=== PATIENT | female | born 1980 | race Caucasian/White ===

== ENCOUNTER 2019-07-10 09:51 | Outpatient (CLI) | payer OTHER, SELFPAY ==
--- NOTE | 2019-08-02 06:40 | ZIOP_ITS ---
ZIO PATCH DATE OF DICTATION August 01, [address] 12 days, 20 hours, July 10-2018 Baseline rhythm sinus. Rare single PAC. Single burst SVT, 5-beat duration at 176 beats per minute. Rare single PVC. Rare couplet. Rare triplet. No VT. No bradycardia or block. 3 symptomatic episodes. Irregular heart rate, chest pain, pressure, fluttering, racing noted during s inus rhythm 61-98 beats per minute. 4 triggered events all occurring during sinus rhythm plus/minus P VCs. Average heart rate sinus 75 beats per minute, range 39-169 beats per minute. Hero Zimmer M.D. OLIVIA/asmita T - 08/02/2019
== END 2019-07-10 10:11 ==
PROVIDERS: PCP Nurse Practitioner Family; Visit Provider Nurse Practitioner Family
DX: R00.2 Palpitations (principal); I47.1 Supraventricular tachycardia; I49.3 Ventricular premature depolarization
CPT/HCPCS: 0296T

== ENCOUNTER 2019-08-24 09:20 | Outpatient (CLI) | payer OTHER, SELFPAY ==
[2019-08-24 11:28] LABS: HCT 41.9 % (36.0-46.0); HGB 14.1 g/dL (12.0-15.5); Mean Corp. HGB Concentration 33.7 g/dL (32.0-36.0); Mean Corpuscular Hemoglobin 29.9 pg (27.0-33.0); Mean Corpuscular Volume 88.8 fL (80-95); Mean Platelet Volume 9.1 fL (8.0-11.0); Platelet Count 306 x1000/uL (130-400); RBC 4.72 m/cumm (4.00-5.20); RBC Distribution Width 12.2 % (11.7-14.6); White Blood Cell Count 6.31 k/cumm (4.4-10.8)
[2019-08-24 13:25] LABS: BUN 17 mg/dL (7-18); CREATININE 0.76 mg/dL (0.55-1.02); Calcium 9.3 mg/dL (8.5-10.1); Calculated LDL 122 mg/dL; Chloride 102 mmol/L (98-107); Cholesterol 181 mg/dL (50-200); Glucose 90 mg/dL (70-100); HDL Cholesterol 50 mg/dL (40-60); Magnesium 1.8 mg/dL (1.8-2.4); Potassium 4.2 mmol/L (3.5-5.1); Sodium 138 mmol/L (136-145); Triglyceride 49 mg/dL (30-150)
[2019-08-24 14:26] LABS: FREE T4 0.98 ng/dL (0.76-1.46)
== END 2019-08-24 09:40 ==
PROVIDERS: PCP Nurse Practitioner Family; Visit Provider Nurse Practitioner Family
DX: Z00.00 Encounter for general adult medical examination without abnormal findings (principal); R00.2 Palpitations
CPT/HCPCS: 36415; 80048; 80061; 85027; 83735; 84439; 84443

== ENCOUNTER 2020-08-28 14:30 | Outpatient (REF) | payer OTHER, SELFPAY ==
--- NOTE | 2020-08-28 14:30 | PAPFT_PTH ---
PATIENT: Michelle Su LOC: [facility] U#:[id number] AGE/SX: 40/F ROOM: RE08/28/[address]: KATHERINE Canela : 1980 BED: DIS: 08/28/2020 SPEC #: [id number] RECD: 08/29/20 12:52 STATUS: WENDY REKvng #: [id number] ZEESHAN: 08/28/20 14:[address]: Abbey Jenkins DEPT: [facility] Cytology RECD BY: Paris Mckeon Tissues: 1 - CX/ENDOCX FOR PAP SMEARS Procedures: PAP THIN PREP/UVM Screening HPV DNA PROBE Comments: [id number]
== END 2020-08-28 14:50 ==
LOC: LBN 14:30
PROVIDERS: PCP Nurse Practitioner Family; Visit Provider Nurse Practitioner Family
DX: R87.616 Satisfactory cervical smear but lacking transformation zone (principal); Z11.51 Encounter for screening for human papillomavirus (HPV)
CPT/HCPCS: 88142; 87624

== ENCOUNTER 2022-04-26 06:56 | Emergency (ER) | payer BC, SELFPAY ==
[2022-04-26 07:01] VITALS: BP 128/83; PULSE 103; RESP 18; TEMP 36.6; O2SAT 98
--- NOTE | 2022-04-26 08:36 | ED.GENADUL_ITS ---
Discharge Plan Disposition Patient Disposition: HOME Condition: Stable Discharge Details Clinical Impression: Low back pain Primary Care Provider: Abbey Jenkins ED Provider: Marissa Oneill Home Meds and New Rx's Prescriptions: New prednisone 20 mg tablet 40 mg PO DAILY Qty: 8 0RF lidocaine [Lidoderm] 5 % adhesive patch,medicated 1 patch topical DAILY Qty: 15 0RF Rx Instructions: leave on most painful area for up to 12 hrs, use only one patch per 24 hour period cyclobenzaprine 10 mg tablet 10 mg PO TID PRNQty: 10 0RF No Action loratadine [Claritin] 10 mg tablet 10 mg PO DAILY Mirena 20 mcg/24 hours (5 yrs) 52 mg intrauterine device 1 device intrauterine ONCE Rx Instructions: as a single dose Discharge Instructions Instructions: Prednisone (By mouth), Cyclobenzaprine (By mouth), Acute Low Back Pain (ED), Lower Back Exercises (ED) Additional Instructions: Please return immediately to the emergency department if you develop any new or worsening symptoms, if your condition does not improve as expected, or if you become otherwise concerned. It is extremely important that you call soon as possible to make an appointment to be seen in follow-up for this visit by your primary care doctor. Stand Alone Forms: Physical Therapy Referral Referrals: Abbey Jenkins, MADYSON [Primary Care Provider] - Discharge Data Discharge Date/Time-TO BE ENTERED AT DEPARTURE: 04/26/22 09:00 Medical Decision Making Michelle Su is a 41-year-old woman without reported history of medical problems presenting to emergency department with back pain. Patient reports that on the evening of 04/23/2022 patient was sitting on the floor of her porch for an extended period, and when she went to stand up noticed pain across her lower back. Patient reports that pain has been ongoing since that time, worse in the left lower back, occasionally radiating down the lateral aspect of her left thigh. Leg pain is not currently occurring. Patient reports that she took Aleve yesterday, which dulled the pain substantially and allowed her to go about her activities essentially as usual. Patient reports that most of her pain occurs with changing positions, i.e. moving from laying down to sitting or from sitting to standing. Patient reports that she is able to walk with minimal discomfort. Patient reports that she has had similar symptoms in the past years ago. She reports that she has chronic neck pain that is unchanged, although she is concerned about exacerbating her neck pain with changing her activity because of back pain. She denies any other pain, fevers, cough, shortness of breath, vomiting, diarrhea, constipation, any changes in urination including frequency/incontinence/retention/dysuria, numbness, weakness. Patient reports that she has been eating and drinking as usual. She denies any recent procedures such as surgery, colonoscopy, etc., denies alcohol use and recreational drug use. Patient reports she is a current smoker. On exam patient is well and nontoxic-appearing. There is no vertebral tenderness to palpation of the thoracic or lumbar spine, mild tenderness palpation of the left lumbar paraspinals. Bilateral lower extremities are neurovascularly intact. Concern for low back strain, sciatica, other. Exam/history at this time is not consistent with acute bony pathology, cauda equina, epidural abscess, epidural hematoma, discitis, sepsis, acute emergent intra-abdominal process. Plan for Flexeril, prednisone, Lidoderm patch, outpatient follow-up with PCP and physical therapy. I had a discussion with Patient regarding return to emergency department precautions, home care, and importance of outpatient follow-up. Pt verbalizes understanding of the plan and is amenable. Patient discharged to home with clear plan for outpatient follow- up. All questions were answered. Disposition decision was made weighing the risks and benefits of hospitalization versus outpatient treatment, the risk for further decompensation, and the patient's wishes. Medical Records Medical records reviewed: Yes I reviewed the patient's medical records. HPI General Mode of arrival: ambulatory . Date/Time Provider Initiated Documentation: 04/26/22 08:04 . Limitations to Documentation: no limitations . Information obtained by: patient, RN notes reviewed and old records reviewed . HPI Narrative: Michelle Su is a 41-year-old woman without reported history of medical problems presenting to emergency department with back pain. Patient reports that on the evening of 04/23/2022 patient was sitting on the floor of her porch for an extended period, and when she went to stand up noticed pain across her lower back. Patient reports that pain has been ongoing since that time, worse in the left lower back, occasionally radiating down the lateral aspect of her left thigh. Leg pain is not currently occurring. Patient reports that she took Aleve yesterday, which dulled the pain substantially and allowed her to go about her activities essentially as usual. Patient reports that most of her pain occurs with changing positions, i.e. moving from laying down to sitting or from sitting to standing. Patient reports that she is able to walk with minimal d iscomfort. Patient reports that she has had similar symptoms in the past years ago. She reports that she has chronic neck pain that is unchanged, although she is concerned about exacerbating her neck pain with changing her activity because of back pain. She denies any other pain, fevers, cough, shortness of breath, vomiting, diarrhea, constipation, any changes in urination including frequency/i ncontinence/retention/dysuria, numbness, weakness. Patient reports that she has been eating and drinking as usual. She denies any recent procedures such as surgery, colonoscopy, etc., denies alcohol use and recreational drug use. Patient reports she is a current smoker. Related Data Home Medications Medication Instructions Recorded Confirmed levonorgestrel 20 mcg/24 hours (7 1 device intrauterine ONCE 08/28/20 04/26/22 yrs) 52 mg intrauterine device (Mirena) loratadine 10 mg tablet (Claritin) 10 mg PO DAILY 08/28/20 10/20/21 cyclobenzaprine 10 mg tablet 10 mg PO TID PRN #10 tabs 04/26/22 lidocaine 5 % topical patch 1 patch topical DAILY #15 ea 04/26/22 (Lidoderm) prednisone 20 mg tablet 40 mg PO DAILY #8 tabs 04/26/22 Previous Rx's Medication Instructions Recorded cyclobenzaprine 10 mg tablet 10 mg PO TID PRN #10 tabs 04/26/22 lidocaine 5 % topical patch 1 patch topical DAILY #15 ea 04/26/22 (Lidoderm) prednisone 20 mg tablet 40 mg PO DAILY #8 tabs 04/26/22 Allergies Allergy/AdvReac Type Severity Reaction Status Date / Time No Known Allergies Allergy Unverified 04/26/22 07:04 General Stated Complaint: Nk/Back Pain OSCAR: 4 Review of Systems Narrative: Constitutional: denies fevers Eyes: denies eye pain ENT: denies ear pain, dental pain, sore throat Cardiovascular: denies chest pain Respiratory: denies SOB, cough GI: denies abdominal pain, vomiting, diarrhea, constipation : denies flank pain, incontinence, retention, dysuria, frequency MSK: denies arthralgias, myalgias, reports chronic neck pain, back pain as per HPI Skin: denies rash Neuro: denies headaches, numbness, weakness PFSH All Active Problems (Updated 04/26/22 @ 08:30 by Marissa Oneill MD) Low back pain (Acute) Hyperlipidemia (Chronic) Cigarette smoker (Chronic) Abnormal uterine bleeding (Chronic) Menorrhagia treated with Mirena IUD placed at [facility] in 2018 Medical History Abnormal uterine bleeding Menorrhagia treated with Mirena IUD placed at [facility] in 2018 Allergic rhinitis Cigarette smoker Hyperlipidemia Surgical History No significant past surgical history Family History Mother Hyperlipidemia Father , at 54 of liver cancer Liver cancer COPD (chronic obstructive pulmonary disease) Brother No problems noted. Daughter No problems noted. Daughter Pseudotumor cerebri Daughter No problems noted. Son No problems noted. Maternal Grandfather , in his 70s No problems noted. Maternal Grandmother Hyperlipidemia Paternal Grandfather No problems noted. Paternal Grandmother COPD (chronic obstructive pulmonary disease) Social History Smoking/Tobacco Use Status: Current every day Tobacco Type: cigarettes Smoking packs per day: 1 Smoking cigarettes per day: 20.0 Quit status: considering quitting Smoking risk assessment performed?: Yes Alcohol Intake: never Drug use: Never Substance use type: does not use Household members: family Housing: house Communication Needs: None Pets and animals: Yes Pets and animals: dog(s) Sexually active: Yes Do you think of yourself as: straight/heterosexual Current gender identity: male What is your relationship status?: How often do you talk on the phone with friends or family?: three or more times per week How often do you get together with friends or relatives?: once per week How often do you attend mandaeism or scientologist services?: 1-3 times per year Do you belong to any clubs or organized social groups?: no Panel score (0-1 are the most socially isolated patients): 2 What type of physical activity do you participate in: decline to answer Duration: decline to answer Frequency: decline to answer Gina/Taoism: No preference Special gina needs: No Seatbelt use: sometimes Helmet use: Yes Helmet use: always Drive intox or ride w/intox day haul 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 Do you feel safe at home: Yes Do you feel safe in your relationship?: Yes Female Reproductive History Menstrual control method: progestin IUCD History History 6 Para 4 Hx # Term Pregnancies Multiple births Hx # Pregnancies Ectopic pregnancies AB induced 1 Hx Number of Living Children 4 AB spontaneous 1 Exam Narrative Exam Narrative: Constitutional: well and [id number], pleasant, conversing normally HENT: head atraumatic/normocephalic/normal inspection, mucous membranes moist Eyes: conjunctiva normal, sclera normal, pupils 3mm b/l Neck: no stridor, normal ROM, trachea midline Resp: normal work of breathing, speaking in full sentences Cardio: normal rate, normal rhythm Back: normal inspection, no rash, mild tenderness to palpation left lumbar paraspinal area that somewhat reproduces pain, no tenderness to palp patient of the thoracic or lumbar spine, no CVA tenderness to palpation bilaterally Skin: warm, dry, normal color, no rash Neuro: alert, not altered, grossly non-focal, motor 5 out of 5 bilateral lower extremities, bilateral lower extremity sensation intact, normal tone Ext: no edema, moving all extremities equally, DP pulses intact Psych: normal mood, normal affect, normal behavior Course Vital Signs Vital signs: Vital Signs Temperature 36.6 C 04/26/22 07:01 Pulse 103 H 04/26/22 07:01 Respiratory Rate 18 04/26/22 07:01 Blood Pressure 128/83 04/26/22 07:01 Pulse Oximetry 98 04/26/22 07:01 Temperature 36.6 C 04/26/22 07:01 Temperature Source Temporal Artery Scan 04/26/22 07:01 Pulse 103 H 04/26/22 07:01 Respiratory Rate 18 04/26/22 07:01 Respiratory Effort Non-Labored 04/26/22 07:05 Blood Pressure 128/83 04/26/22 07:01 Blood Pressure Position Sitting 04/26/22 07:01 Pulse Oximetry 98 04/26/22 07:01 Oxygen Delivery Method Room Air 04/26/22 07:01 Oxygen Flow Rate 0 04/26/22 07:01 Lab/Test Results Lab/Test Results: POC- Test(urine) Negative
[2022-04-26] MEDS: Lidocaine 5% Patch 1 PATCH TP (08:40)
[2022-04-26] MEDS: Cyclobenzaprine 10 MG TAB PO (08:41)
[2022-04-26] MEDS: predniSONE 20 MG TAB 40 MG PO (08:41)
[2022-04-26 08:46] VITALS: BP 113/78; PULSE 79; RESP 16; TEMP 37; O2SAT 99
== END 2022-04-26 09:00 | disposition home or self-care (01) ==
PROVIDERS: Emergency Provider Student in an Organized Health Care Education/Training Program; PCP Nurse Practitioner Family
DX: M54.50 Low back pain, unspecified (principal)
CPT/HCPCS: 81025; 99283; J7512

== ENCOUNTER 2025-08-17 23:03 | Emergency (ER) | payer BC, SELFPAY ==
[2025-08-17 23:07] VITALS: BP 140/86; PULSE 65; RESP 18; TEMP 36.6; O2SAT 98
[2025-08-17 23:11] VITALS: BP 140/86; PULSE 65; RESP 18; TEMP 36.6; O2SAT 98
--- NOTE | 2025-08-17 23:11 | W.ED.GENAD ---
Discharge Plan Disposition Patient Disposition: Home Condition: Good Discharge Details Clinical Impression: Jaw pain Primary Care Provider: Abbey Jenkins ED Provider: Dylan Long Meds and New Rx's Prescriptions: No Action fexofenadine [Giovanna Allergy] 180 mg tablet 180 mg PO DAILY PRN (Reason: allergies) Qty: 90 3RF triamcinolone acetonide [Nasacort] 55 mcg aerosol,spray 2 spray intranasal DAILY Qty: 16.9 0RF Rx Instructions: administer into each nostril triamcinolone acetonide 0.1 % cream 1 applic topical BID PRN (Reason: rash) Qty: 453.6 1RF Rx Instructions: Apply to affected areas twice a day as needed for rash/itching Discharge Instructions Additional Instructions: You were seen in the ED for right jaw pain that has since improved/resolved. Your exam and vital signs are reassuring. Description of your pain suggest masseter spasm possibly related to your TMJ. Would continue ibuprofen over the weekend. Follow-up with dentist or oral surgery regarding your TMJ joints. Return to ED for any chest pain, shortness of breath, neurologic change, vision change, other concerns. Discharge Data Discharge Date/Time-TO BE ENTERED AT DEPARTURE: 08/17/25 23:27 HPI General Mode of arrival: ambulatory. Date/Time Provider Initiated Documentation: 08/17/25 23:11. Limitations to Documentation: no limitations. Information obtained by: patient and RN notes reviewed. HPI Narrative: Patient presents to ED with right sided jaw pain that began just before going to bed. Initially thought it was related to her TMJ but became severe and radiated into the ear and behind the ear. Had not been experiencing any mouth or dental pain prior. Has not been ill with any URI type symptoms. Did not develop chest pain, shortness of breath, lightheadedness, sweats. Did become a little nauseated but she thinks it was due to the pain. Could not touch her face because it made the pain worse. Took ibuprofen and acetaminophen as well as used heat and ice. Pain continued which prompted her to come to ED but has since improved significantly to the point of being mostly gone now that she is here. Reports she had never had anything like this before. Denies headache or eye pain. Denies vision change. Denies neurologic change. Related Data Home Medications ?Medication ?Instructions ?Recorded ?Confirmed triamcinolone acetonide 0.1 % 1 applic topical BID PRN rash 03/28/23 01/23/25 topical cream #453.6 grams triamcinolone acetonide 55 mcg 2 spray intranasal DAILY #16.9 mL 07/04/23 01/23/25 nasal spray aerosol (Nasacort) fexofenadine 180 mg tablet 180 mg PO DAILY PRN allergies #90 10/19/23 01/23/25 (Giovanna Allergy) tabs Previous Rx's ?Medication ?Instructions ?Recorded triamcinolone acetonide 0.1 % 1 applic topical BID PRN rash 03/28/23 topical cream #453.6 grams triamcinolone acetonide 55 mcg 2 spray intranasal DAILY #16.9 mL 07/04/23 nasal spray aerosol (Nasacort) fexofenadine 180 mg tablet 180 mg PO DAILY PRN allergies #90 10/19/23 (Giovanna Allergy) tabs Allergies Allergy/AdvReac Type Severity Reaction Status Date / Time No Known Allergies Allergy Unverified 02/06/25 15:54 General Stated Complaint: FacialProb OSCAR: 4 Exam Narrative Exam Narrative: Const: WDWN female in NAD. VS per triage. HEENT: NC/AT. Normal facial exam. TMs and canals normal B. Teeth, gums, oropharynx normal. No percussion tenderness of right sided teeth. Bilateral TMJ popping with mouth opening. Eyes: PERRL and EOMI. Neck: Supple. Trachea midline. No adenopathy. Lungs: Normal respiratory effort. Neuro: A+O x 3. Normal speech, mentation, gait. Cranial nerves II - XII grossly intact. No gross motor or sensory deficit. Course Vital Signs Vital signs: Vital Signs Temperature 97.8 F 08/17/25 23:07 Pulse 65 08/17/25 23:07 Respiratory Rate 18 08/17/25 23:07 Blood Pressure 140/86 08/17/25 23:07 Pulse Oximetry 98 08/17/25 23:07 Temperature 97.8 F 08/17/25 23:07 Temperature Source Oral 08/17/25 23:07 Pulse 65 08/17/25 23:07 Respiratory Rate 18 08/17/25 23:07 Blood Pressure 140/86 08/17/25 23:07 Blood Pressure Position Sitting 08/17/25 23:07 Pulse Oximetry 98 08/17/25 23:07 Oxygen Delivery Method Room Air 08/17/25 23:07 Oxygen Flow Rate 0 08/17/25 23:07 Medical Decision Making Patient presenting to the ED with right jaw pain. Pain has pretty much resolved at this point. She is able to open and close her mouth normally though has definite popping and subluxation of bilateral TMJ with full opening of her mouth. Exam is otherwise unremarkable. No other associated symptoms and physically hurt to touch the right jaw area. I do not believe this was related to atypical ACS presentation nor do I feel it was related to carotid dissection given lack of neurologic findings. To sudden of onset to suggest temporal arteritis. Most likely masseter muscle spasm, less likely trigeminal neuralgia. Recommend ibuprofen 3 times a day over the weekend and follow-up with dentist or oral surgery. Return precautions provided. PFSH All Active Problems Jaw pain (Acute) Mehreen-menopausal (Acute) Hyperlipidemia (Chronic) Allergic rhinitis (Chronic) Cigarette smoker (Chronic) Medical History Presence of IUD Abnormal uterine bleeding Menorrhagia treated with Mirena IUD placed at [facility] in 2018 Surgical History No significant past surgical history Family History (Updated 10/23/24 @ 09:54 by Cheryle Archer) Mother Hyperlipidemia Father , at 54 of liver cancer Liver cancer COPD (chronic obstructive pulmonary disease) Alcohol use disorder Brother No problems noted. Daughter Giant cell tumor of joint Daughter Pseudotumor cerebri Daughter No problems noted. Son No problems noted. Maternal Grandfather , in his 70s No problems noted. Maternal Grandmother Hyperlipidemia Paternal Grandfather No problems noted. Paternal Grandmother COPD (chronic obstructive pulmonary disease) Social History Smoking/Tobacco Use Status: Current every day Tobacco Type: cigarettes Smoking packs per day: 1 Smoking cigarettes per day: 20.0 Quit status: considering quitting Smoking risk assessment performed?: Yes Alcohol Intake: never Drug use: Never Substance use type: does not use Adopted: No Household members: spouse Housing: house Number of Children: 4 number of grandchildren: 4 Communication Needs: None Education Level: high school Details: 10th Do you need help understanding health information?: Never current occupation: technical account manager Pets and animals: Yes Pets and animals: dog(s) Sexually active: Yes Do you think of yourself as: straight/heterosexual Current gender identity: female What is your relationship status?: How often do you talk on the phone with friends or family?: twice per week How often do you get together with friends or relatives?: once per week How often do you attend hoahaoism or hinduism services?: decline to answer Do you belong to any clubs or organized social groups?: no Panel score (0-1 are the most socially isolated patients): 2 What type of physical activity do you participate in: decline to answer Duration: decline to answer Frequency: decline to answer Gina/Buddhist: No preference Special gina needs: No Seatbelt use: always Helmet use: Yes Helmet use: always Drive intox or ride w/intox assembly line driver: No Working smoke detector in home: Yes Carbon monox detector in home: Yes Firearms in home: No Do you feel safe at home: Yes Do you feel safe in your relationship?: Yes Would you like helpful sources: No Female Reproductive History Menstrual control method: progestin IUCD History History 6 Para 4 Hx # Term Pregnancies Multiple births Hx # Pregnancies Ectopic pregnancies AB induced Hx Number of Living Children 4 AB spontaneous 2 Past Pregnancies Del. Date GA/Weeks # Preg Succ Route Wgt Sex Labor Lgth Anesthesia Location [facility] 08/02/97 3742.137 g [facility] 03/22/00 4082.331 g [facility] 01/24/02 [facility] 03/15/04 3798.836 g [facility] Delivery Date: 08/02/97 Last Updated by: EOBNI Pelletier Delivery Date: 03/22/00 Last Updated by: EBONI Pelletier Delivery Date: 01/24/02 Last Updated by: EBONI Pelletier Delivery Date: 03/15/04 Last Updated by: EBONI Pelletier
== END 2025-08-17 23:27 | disposition home or self-care (01) ==
PROVIDERS: Emergency Provider Emergency Medicine; PCP Nurse Practitioner Family
DX: R68.84 Jaw pain (principal); F17.210 Nicotine dependence, cigarettes, uncomplicated
CPT/HCPCS: 99283

== ENCOUNTER 2025-10-23 09:35 | Outpatient (REF) | payer OTHER, SELFPAY ==
--- NOTE | 2025-10-23 07:30 | PAPFT_PTH ---
PATIENT: Michelle Su LOC: [facility] U#:[id number] AGE/SX: 45/F ROOM: RE10/23/[address]: KATHERINE Canela : 1980 BED: DIS: 10/23/2025 SPEC #: [id number] RECD: 10/23/25 18:34 STATUS: WENDY REKvng #: [id number] ZEESHAN: 10/23/25 07:[address]: Abbey Jenkins DEPT: [facility] Cytology RECD BY: Paris Mckeon Tissues: 1 - CX/ENDOCX FOR PAP SMEARS Procedures: PAP THIN PREP/UVM Screening HPV DNA PROBE Comments: [id number] (HPV 16 & 18/45)
== END 2025-10-23 09:36 | disposition home or self-care (01) ==
LOC: LBN 09:35
PROVIDERS: PCP Nurse Practitioner Family; Visit Provider Nurse Practitioner Family
DX: Z12.4 Encounter for screening for malignant neoplasm of cervix (principal)
CPT/HCPCS: 88142; 87624